=== PATIENT | male | born 1960 | race African-American/Black ===

== ENCOUNTER 2024-01-18 09:15 | Emergency (ER) | payer SELFPAY ==
[~2024-01-18] VITALS: Ht 170.2 cm; Wt 80.0 kg
[2024-01-18 09:17] VITALS: O2SAT 100
[2024-01-18] MEDS: KETOROLAC 30MG/ML VIAL IV STA (09:47)
[2024-01-18 10:48] LABS: BASOPHILS % 0.5 % (0.0-2.0); HEMATOCRIT. 44.6 % (42.0-52.0); HEMOGLOBIN. 15.2 g/dL (14.0-18.0); LYMPHOCYTES % 43.7 % (20.0-50.0); MEAN CORPUSCULAR HEMOGLOBIN 30.9 pg (28.0-32.0); MEAN CORPUSCULAR VOLUME 90.8 fL (80.0-94.0); MEAN PLATELET VOLUME 8.9 fl (7.4-10.4); MONOCYTES % 8.5 % (2.0-8.0); NEUTROPHILS % 44.3 % (40.0-76.0); PLATELET 144 x1000/uL (130-400); RED BLOOD CELL COUNT 4.91 mill/uL (4.7-6.1); RED CELL DISTRIBUTION WIDTH 14.2 % (11.6-14.6); WHITE BLOOD COUNT 5.8 x1000/uL (4.5-11.0)
[2024-01-18 11:13] LABS: ALANINE AMINOTRANSFERASE 26 IU/L (10-49); ALBUMIN 4.7 g/dL (3.2-4.8); ASPARTATE AMINOTRANSFERASE 32 IU/L (<34); CARBON DIOXIDE 28 mEq/L (21-32); CHLORIDE 101 mEq/L (98-107); GLUCOSE 218 mg/dL (70-105); POTASSIUM 3.9 mEq/L (3.5-5.1); PROTEIN TOTAL 8.1 g/dL (6.0-8.3); SODIUM 137 mEq/L (136-145); TROPONIN I HIGH SENSITIVITY 9 ng/L (3.0-53); UREA NITROGEN BLOOD 12 mg/dL (9-23)
[2024-01-18] MEDS ORDERED: TOPUD PO (11:25)
[2024-01-18 12:19] VITALS: BP 161/89; PULSE 69; RESP 16; TEMP 97.9
== END 2024-01-18 12:30 | disposition home or self-care (01) ==
LOC: ER 10:06
DX: R07.89 Other chest pain (principal)
CPT/HCPCS: 80053; 83880; 85025; 84484; 36415; 71045; 93005; 96374; 99285; J1885; Z7610